=== PATIENT | male | born 1985 | race Two or more races ===

== ENCOUNTER 2021-04-21 08:13 | Outpatient (CLI) | payer OTHER | END 2021-04-21 08:15 | disposition home or self-care (01) | LOC: LAB 08:13 | PROVIDERS: ATTEND Obstetrics & Gynecology | DX: Z20.828 Contact with and (suspected) exposure to other viral communicable diseases (principal); Z20.818 Contact with and (suspected) exposure to other bacterial communicable diseases ==

== ENCOUNTER 2021-05-14 21:13 | Emergency (ER) | payer OTHER ==
[~2021-05-14] VITALS: Ht 162.6 cm; Wt 68.0 kg
[2021-05-14] MEDS ORDERED: CLARITIN (22:02)
== END 2021-05-15 00:09 ==
LOC: ER 21:13
DX: U07.1 COVID-19 (principal)